=== PATIENT | female | born 1940 | race Caucasian/White ===

== ENCOUNTER 2017-06-03 20:07 | Emergency (ER) | payer MEDICARE ==
[~2017-06-03] VITALS: Ht 157.5 cm; Wt 68.3 kg
[~2017-06-03 20:07] MED LIST: ACTO35TA PO; LEVO50TA51 PO; LORT5TAB PO; SIMV20 PO
[2017-06-03 20:14] VITALS: BP 133/79; PULSE 79; RESP 20; TEMP 98.2; O2SAT 95
[2017-06-03] MEDS ORDERED: LOVA40TA PO (20:52)
[2017-06-03] MEDS ORDERED: ASPI81CH6 CHEW (20:53)
[2017-06-03] MEDS ORDERED: ALEN1TAB48 PO (20:54)
[2017-06-03 22:32] VITALS: BP 117/70; PULSE 68; RESP 16; O2SAT 98
--- NOTE | 2017-06-03 23:09 | RADRPT ---
EXAM DATE/TIME: 06/03/2017 22:02 [facility] COMPARISON: No previous studies available for comparison. EXTERNAL COMPARISON : [facility], US LEG, BILATERAL VENOUS INSUFFICIENCY October 14, 2015. INDICATIONS : Right calf pain. MEDICAL HISTORY : Hypertension. Hypercholesterolemia. Arthritis. Thyroid disease. SURGICAL HISTORY : Cholecystectomy. Varicose vein surgery, 03/2017. ENCOUNTER: Initial ACUITY: 1 day PAIN SCORE: 3/10 LOCATION: Right leg. TECHNIQUE: Venous ultrasound of the leg was performed from the inguinal ligament to the proximal calf. Real-tiara e, color Doppler and spectral tracing, compression and augmentation techniques were used. FINDINGS: There is normal compressibility of the deep venous system from the inguinal region to the proximal ca lf. No echogenic clot is seen in the lumen of the common femoral, femoral, popliteal, and posterior tibial veins. There is a normal response of the venous system to proximal and distal augmentation an d respiration. CONCLUSION: No DVT. Garry Reynoso MD on June 03, 2017 at 23:07 Board Certified Radiologist. This report was verified electronically.
--- NOTE | 2017-06-03 23:19 | PD ---
HPI Chief Complaint: Pain: Acute or Chronic Time Seen by Provider: 20:30 Travel History International Travel<30 days: No Contact w/Intl Traveler<30days: No Traveled to known affect area: No History of Present Illness HPI 77-year-old female presents to the emergency department for complaint of one day of right lower leg posterior calf pain near site of previous the surgery. Patient had surgery on the right lower leg in March. Patient has been doing well and has been encouraged by her vascular surgeon to walk frequently and daily. Patient states she was on one of her typical walks does not recall a specific injury but subsequently has noted some swelling and mild redness of the leg with pain. The patient rates her pain as 10 over 10 in intensity. Patient took no medications prior to arrival to the emergency department. Patient's had no weakness in the leg. There is been no back pain or referred pain from the lower back or buttock area to the right lower extremity. No report of bladder or bowel dysfunction or saddle anesthesia. Patient's had no fever or chills. No recent report of long distance travel protracted bedrest or surgical procedure of the previously noted. No prior history of peripheral vascular disease or claudication. Patient states symptoms worsened with activity and improved with standing or elevation or breast. Patient has history of dyslipidemia and hypothyroidism. Patient is a nonsmoker. [facility] Past Medical History Narrative Medical Arthritis hypothyroidism dyslipidemia vein surgery no tobacco use nursing notes reviewed Arthritis: Yes (LUMBAR) Heart Rhythm Problems: No Cardiovascular Problems: No High Cholesterol: Yes Chest Pain: No Diminished Hearing: Yes (wears hearing aids) Genitourinary: No Hypertension: Yes Musculoskeletal: Yes Neurologic: No Reproductive: No Respiratory: No Thyroid Disease: Yes Influenza Vaccination: No ?: Not Past Surgical History Abdominal Surgery: Yes (LAP. CHOLECYSTECTOMY) Cholecystectomy: Yes Other Surgery: Yes (varicose vein surgery 03/2017) Social History Alcohol Use: Yes (GLASS OF WINE DAILY) Tobacco Use: No Substance Use: No Allergies-Medications (Allergen,Severity, Reaction): Coded Allergies: insect venom (Verified Allergy, Intermediate, 06/03/17) Ants mold (Verified Allergy, Intermediate, 06/03/17) Mildew and Dust Reported Meds & Prescriptions Reported Meds & Active Scripts Active Reported Alendronate (Alendronate Sodium) 70 Mg Tab 70 Mg PO Q7D Aspirin Low Dose (Aspirin) 81 Mg Chew 81 Mg CHEW DAILY Lovastatin 40 Mg Tab 40 Mg PO DAILY Levoxyl (Levothyroxine Sodium) 50 Mcg Tab 50 Mcg PO DAILY Review of Systems Except as stated in HPI: all other systems reviewed are Neg Physical Exam Narrative GENERAL: Well-developed well-nourished female in no acute distress no respiratory distress SKIN: Warm and dry. HEAD: Normocephalic. EYES: No scleral icterus. No injection or drainage. NECK: Supple, trachea midline. No JVD or lymphadenopathy. CARDIOVASCULAR: Regular rate and rhythm without murmurs, gallops, or rubs. RESPIRATORY: Breath sounds equal bilaterally. No accessory muscle use. GASTROINTESTINAL: Abdomen soft, non-tender, nondistended. MUSCULOSKELETAL: No cyanosis, or edema. Attention right lower extremity with mild swelling and erythema of the medial aspect of the right lower extremity just distal to the popliteal fossa. Dorsalis pedis pulses 2+ to palpation posterior tibialis pulses 1+ to palpation radial pulses 2+ to palpation; capillary refill brisk and less than 2 seconds per digit. No deformity. Proximally no groin lymphadenopathy. Patient has negative Homans sign bilaterally. Patient has no palpable cord to the posterior calf of the right lower extremity. Patient does have mild tenderness to palpation and mild ascending erythema from the proximal medial posterior lower leg to the mid medial right thigh's area. BACK: Nontender without obvious deformity. No CVA tenderness. Data Data Last Documented VS Vital Signs Date Time Temp Pulse Resp B/P (MAP) Pulse Ox O2 Delivery O2 Flow Rate FiO2 06/03/17 23:45 132/90 (104) 149/80 (103) 160/72 (101) 170/80 (110) 06/03/17 22:32 68 16 98 Room Air 06/03/17 20:14 98.2 Orders Orders Us Leg Venous Doppler (06/03/17 ) Complete Blood Count With Diff (06/03/17 23:30) Basic Metabolic Panel (Bmp) (06/03/17 23:30) Ketorolac Inj (Toradol Inj) (06/03/17 23:30) Cta Runoff W Iv Contrast W 3d (06/03/17 ) Labs Laboratory Tests Test 06/04/17 00:00 White Blood Count 5.6 TH/MM3 Red Blood Count 5.18 MIL/MM3 Hemoglobin 14.9 GM/DL Hematocrit 45.9 % Mean Corpuscular Volume 88.6 FL Mean Corpuscular Hemoglobin 28.8 PG Mean Corpuscular Hemoglobin Concent 32.5 % Red Cell Distribution Width 13.4 % Platelet Count 167 TH/MM3 Mean Platelet Volume 10.1 FL Neutrophils (%) (Auto) 43.6 % Lymphocytes (%) (Auto) 40.9 % Monocytes (%) (Auto) 8.6 % Eosinophils (%) (Auto) 6.1 % Basophils (%) (Auto) 0.8 % Neutrophils # (Auto) 2.5 TH/MM3 Lymphocytes # (Auto) 2.3 TH/MM3 Monocytes # (Auto) 0.5 TH/MM3 Eosinophils # (Auto) 0.3 TH/MM3 Basophils # (Auto) 0.0 TH/MM3 CBC Comment DIFF FINAL Differential Comment Blood Urea Nitrogen 17 MG/DL Creatinine 1.00 MG/DL Random Glucose 101 MG/DL Calcium Level 8.8 MG/DL Sodium Level 141 MEQ/L Potassium Level 3.4 MEQ/L Chloride Level 106 MEQ/L Carbon Dioxide Level 28.6 MEQ/L Anion Gap 6 MEQ/L Estimat Glomerular Filtration Rate 54 ML/MIN MDM Medical Decision Making Medical Screen Exam Complete: Yes Emergency Medical Condition: Yes Medical Record Reviewed: Yes Interpretation(s) Last Impressions Lower Extremity Ultrasound 06/03/17 0000 Signed Impressions: Service Date/Time: Saturday, June 03, 2017 22:02 - CONCLUSION: No DVT. Garry Reynoso MD CBC & BMP Diagram 06/04/17 00:00 Calcium Level 8.8 Vital Signs Date Time Temp Pulse Resp B/P (MAP) Pulse Ox O2 Delivery O2 Flow Rate FiO2 06/03/17 23:45 132/90 (104) 149/80 (103) 160/72 (101) 170/80 (110) 06/03/17 22:32 68 16 117/70 (86) 98 Room Air 06/03/17 20:14 98.2 79 20 133/79 (97) 95 Differential Diagnosis Cellulitis, DVT, PVD, no acute limb ischemia Narrative Course RLE GRACY: 0.93 wnl @ 00:45 pain resolved after toradol 30 mg iv x 1 dose Without evidence of active claudication or acute limb ischemia; patient is stable for outpatient management and follow-up with her primary care provider for area of erythema and warmth patient given one-time dose of Keflex and prescription for Keflex and encouraged to use ibuprofen as tolerated for pain associated with inflammation and to follow-up with her provider on Tuesday. Patient encouraged to return to the emergency department should she have any acute or abrupt change in the LE or recurrent symptoms. Diagnosis Primary Impression: Pain in right lower leg Additional Impression: Cellulitis of right lower leg Referrals: Primary Care Physician 3 days Patient Instructions: General Instructions Med/Other Pt SpecificInfo: Prescription(s) given Scripts Cephalexin (Keflex) 500 Mg Capsule 500 MG PO Q6H for Infection for 7 Days, #28 CAP 0 Refills Prov: Jacey Tucker MD 06/04/17 Disposition: 01 DISCHARGE HOME Condition: Stable Jacey Tucker MD Jun 03, 2017 23:19
[2017-06-03] MEDS ORDERED: KETOROLAC TROMETHAMINE 30 MG/ML (IVP) VIAL IV PUSH ONE (23:30)
[2017-06-03 23:45] VITALS: BP_SYST 132; BP_SYST 149; BP_SYST 160; BP_SYST 170; BP_DIAS 72; BP_DIAS 80; BP_DIAS 90
[2017-06-04 00:22] LABS: AUTOMATED NEUTROPHIL # 2.5 TH/MM3 (1.8-7.7); BASOPHIL % 0.8 % (0.0-2.0); EOSINOPHIL # 0.3 TH/MM3 (0-0.4); EOSINOPHIL % 6.1 % (0.0-4.0); HEMATOCRIT 45.9 % (35.0-46.0); HEMO FLAGS DIFF FINAL; LYMPH % 40.9 % (9.0-44.0); LYMPHOCYTE # 2.3 TH/MM3 (1.0-4.8); MEAN CELL VOLUME 88.6 FL (80.0-100.0); MEAN CORPUSCULAR HEMOGLOBIN 28.8 PG (27.0-34.0); MEAN CORPUSCULAR HGB CONC 32.5 % (32.0-36.0); MONO % 8.6 % (0.0-8.0); NEUT % 43.6 % (16.0-70.0); PLATELET COUNT 167 TH/MM3 (150-450); RED BLOOD COUNT 5.18 MIL/MM3 (4.00-5.30); RED CELL DISTRIBUTION WIDTH 13.4 % (11.6-17.2); WHITE BLOOD COUNT 5.6 TH/MM3 (4.0-11.0)
[2017-06-04 00:29] LABS: POTASSIUM 3.4 MEQ/L (3.5-5.1)
[2017-06-04 00:32] LABS: BICARBONATE 28.6 MEQ/L (21.0-32.0)
[2017-06-04] MEDS ORDERED: CEPH-460 PO (00:59)
--- NOTE | 2017-06-04 01:06 | RADRPT ---
EXAM DATE/TIME: 06/04/2017 00:56 [facility] COMPARISON: No previous studies available for comparison. INDICATIONS : Right calf pain. No known injury. MEDICAL HISTORY : Hypertension. Hypercholesterolemia. Arthritis. Thyroid disease SURGICAL HISTORY : Cholecystectomy. Varicose vein surgery ENCOUNTER: Initial ACUITY: 1 day PAIN SCORE: 4/10 LOCATION: Right tibia/fibula FINDINGS: Two view examination of the right tibia demonstrates no evidence of fracture or dislocation. Bony mi neralization is normal. The soft tissue structures are intact. No radiopaque foreign bodies. CONCLUSION: No evidence of recent bony injury. Doug Lamb MD on June 04, 2017 at 1:03 Board Certified Radiologist. This report was verified electronically.
[2017-06-04 01:26] VITALS: BP 136/72
== END 2017-06-04 01:30 | disposition home or self-care (01) ==
LOC: PHED 20:07
DX: M79.661 Pain in right lower leg (principal); L03.115 Cellulitis of right lower limb
CPT/HCPCS: 73590; 80048; 85025; 93971; 96374; 99285; J1885